=== PATIENT | female | born 1985 | race American Indian/Alaskan Native ===

== ENCOUNTER 2018-12-19 11:05 | Emergency (ER) | payer MEDICAID ==
[2018-12-19 11:22] VITALS: BP 120/84
--- NOTE | 2018-12-19 11:27 | Emergency Department Report ---
Chief Complaint: Urogenital-Female Stated Complaint: UNCOMFORTABLE URINATION/VAGINAL ISSUES Time Seen by Provider: 12/19/18 11:24 - HPI History of Present Illness: CONCERNED FOR BV AND STI NAD - Exam Vital Signs: Vital Signs 12/19/18 11:21 Temperature 98.1 F Pulse Rate 74 Respiratory 16 Rate Blood Pressure 120/84 [Right] O2 Sat by Pulse 100 Oximetry MSE screening note: Focused history and physical exam performed. Due to findings the following was ordered: ED Disposition for MSE Condition: Stable
[2018-12-19 13:00] LABS: Bacteria,Urine 2+ /HPF (Negative); Bilirubin,Urine NEG (Negative); Blood,Urine SM (Negative); Color,Urine Yellow (Yellow); Mucus,Urine FEW /HPF; Protein,Urine <15 mg/dL mg/dL (Negative); Urobilinogen,Urine < 2.0 mg/dL (<2.0)
[2018-12-19 13:01] LABS: HCG Qualitative,Urine Negative (Negative)
== END 2018-12-19 12:56 | disposition left against medical advice (07) ==
LOC: ED 11:05
DX: R39.198 Other difficulties with micturition (principal); Z53.21 Procedure and treatment not carried out due to patient leaving prior to being seen by health care provider
CPT/HCPCS: 81001; 81025